=== PATIENT | female | born 1960 | race Asian ===

== ENCOUNTER 2019-01-03 00:21 | Emergency (ER) | payer OTHER ==
[~2019-01-03] VITALS: Ht 152.4 cm; Wt 50.8 kg
[2019-01-03] MEDS ORDERED: LEVOTHYROXINE125 MCG ORAL (00:34)
[2019-01-03 00:36] VITALS: BP 175/89
--- NOTE | 2019-01-03 00:40 | NUR ---
ED Nurse Note: pt was brought in by ra 26 from home c/o right eye pain x 2 days. pt vital signs are stable. pt is still able to see from affected eye but she states her affected eye vision is a bit blurry. pt is able to see normally from other eye. pt states her eye is a bit irritated. affected eye appears pinkish with a little bit of tears. pt cardiac assessment is within normal limits with S1 and S2 noted, pulse and sensation noted on all 4 extremities. pt nuero assessment is within normal limits, pt is alert and oriented times 4, pts pupiles are rounds and reactive to light and accomodating. pt is able to ambulate with steady gait. pt respritory assessment is within normal limits with clear lung sounds on all lung bases no wheezing or adventitious sounds noted.
[2019-01-03] MEDS ORDERED: LET 3ml Soln TOPIC ONE (01:15)
--- NOTE | 2019-01-03 01:20 | NUR ---
ED Nurse Note: Tetracaine LET returned to pyxis, MX not given.
[2019-01-03] MEDS ORDERED: Tetracaine 0.5% Opth 4ml Soln RIGHT EYE ONE (01:30)
[2019-01-03] MEDS ORDERED: Ketorolac 30mg Inj IV ONE (01:45)
[2019-01-03 01:47] LABS: APPEARANCE,URINE CLEAR; BASOPHILS % (AUTO) 0.9 % (0.0-2.0); BILIRUBIN, URINE NEGATIVE (NEGATIVE); COLOR,URINE PALE YELLOW; EOSINOPHILS % (AUTO) 1.9 % (0.0-3.0); GLUCOSE, URINE (UA) NEGATIVE (NEGATIVE); HEMATOCRIT 34.8 % (37.0-47.0); HEMOGLOBIN 11.6 G/DL (12.0-16.0); KETONES,URINE NEGATIVE (NEGATIVE); LEUKOCYTE ESTERASE ,URINE NEGATIVE (NEGATIVE); LYMPHOCYTES % (AUTO) 30.8 % (20.0-45.0); MEAN CORPUSCULAR VOLUME 92 FL (80-99); MONOCYTES % (AUTO) 5.1 % (1.0-10.0); NEUTROPHILS % (AUTO) 61.2 % (45.0-75.0); NITRITE,URINE NEGATIVE (NEGATIVE); PH,URINE 7 (4.5-8.0); PLATELET COUNT 185 K/UL (150-450); PROTEIN,URINE NEGATIVE (NEGATIVE); RED BLOOD COUNT 3.77 M/UL (4.20-5.40); RED CELL DISTRIBUTION WIDTH 11.7 % (11.6-14.8); UROBILINOGEN,URINE NORMAL MG/DL (0.0-1.0); WHITE BLOOD COUNT 5.5 K/UL (4.8-10.8)
[2019-01-03 01:59] LABS: ANION GAP 5 mmol/L (5-15); BLOOD UREA NITROGEN 8 mg/dL (7-18); CALCIUM 9.5 MG/DL (8.5-10.1); CARBON DIOXIDE 31 MMOL/L (21-32); CHLORIDE 103 MMOL/L (98-107); CREATININE 0.5 MG/DL (0.55-1.30); POTASSIUM 3.8 MMOL/L (3.5-5.1); SODIUM 139 MMOL/L (136-145)
[2019-01-03] MEDS ORDERED: POLYTRIM OP SOL10 ML OPHTHALM (02:26)
[2019-01-03] MEDS ORDERED: NORVASC5 MG ORAL (02:26)
--- NOTE | 2019-01-03 02:26 | Emergency Room Report ---
History of Present Illness General Chief Complaint: Eye Problems Source: Patient Present Illness HPI This is a 58-year-old Amhar[place] female with a history of intermittent high blood pressure. She's not on medication for it. She presents with chief complaint of high blood pressure and right eye pain. Onset for last couple days. Per EMS blood pressure very high. It was systolic over 200 and diastolic 120s. Here blood pressure much better. Her eye pain been ongoing for last 2 days for this of swelling and injection. There is some discharge. She is currently seeing an [employer] community [employer] member for macular degeneration and getting monthly Eylea injection. Pain is 8 out of 10. No nausea no vomiting. Worse with lights. Allergies: Coded Allergies: No Known Allergies (Unverified , 01/03/19) Patient History Past Medical History: see triage record, old chart reviewed Past Surgical History: other Pertinent Family History: none Social History: Denies: smoking Last Menstrual Period: 5 yuears ago Now: No Immunizations: other Reviewed Nursing Documentation: PMH: Agreed; PSxH: Agreed Nursing Documentation-PMH Hx Hypertension: Yes Review of Systems Eye: Reports: eye pain; Denies: blurred vision ENT: Denies: ear pain, nose congestion, throat swelling Respiratory: Denies: cough, shortness of breath Cardiovascular: Denies: chest pain, palpitations Gastrointestinal: Denies: abdominal pain, diarrhea, nausea, vomiting Musculoskeletal: Denies: back pain, joint pain Skin: Denies: rash Neurological: Denies: headache, numbness Endocrine: Denies: increased thirst, increased urine Hematologic/Lymphatic: Denies: easy bruising All Other Systems: negative except mentioned in HPI Physical Exam Vital Signs Date Time Temp Pulse Resp B/P (MAP) Pulse Ox O2 Delivery O2 Flow Rate FiO2 01/03/19 00:31 98.1 90 18 175/89 99 Room Air vitals with high blood pressure Sp02 EP Interpretation: reviewed, normal General Appearance: well appearing, no apparent distress, alert Head: normocephalic, atraumatic Eyes: right eye other - Right eye: She has mild puffiness to both lids. She has injection of the conjunctiva and sclera. There is small amount of yellowish discharge. Does have photophobia.; bilateral eye PERRL, bilateral eye EOMI ENT: hearing grossly normal, normal pharynx Neck: full range of motion, supple, no meningismus Respiratory: chest non-tender, lungs clear, normal breath sounds Cardiovascular #1: regular rate, rhythm, no murmur Gastrointestinal: normal bowel sounds, non tender, no mass, no organomegaly, no bruit, non-distended Musculoskeletal: back normal, gait/station normal, normal range of motion Neurologic: alert, oriented x3 Psychiatric: mood/affect normal Skin: warm/dry Medical Decision Making Diagnostic Impression: Primary Impression: Acute right eye pain Additional Impressions: Hypertension Qualified Codes: I10 - Essential (primary) hypertension Headache Qualified Codes: G44.209 - Tension-type headache, unspecified, not intractable ER Course Patient with acute right eye pain and headache. I see no evidence of herpetic lesion. I see no evidence of acute angle glaucoma. No evidence of intracranial injury, bleed or neoplastic process. She has similar symptom in the past. Intraocular pressure not extremely elevated and equal bilaterally. Blood pressure improved greatly without intervention. Pain resolved after tetracaine eyedrop. We will discharge home with ophthalmology follow-up. Last Vital Signs Date Time Temp Pulse Resp B/P (MAP) Pulse Ox O2 Delivery O2 Flow Rate FiO2 01/03/19 00:36 98.1 69 18 175/89 99 Room Air Status: improved Disposition: HOME, SELF-CARE Condition: Stable Scripts Amlodipine Besylate (Norvasc) 5 Mg Tablet 5 MG ORAL DAILY, #30 TAB Prov: José Bergeron MD 01/03/19 Polymyxin/Trimethoprim (Polytrim Eye Drops) 10 Ml Drops 2 DROP OPHTHALM THREE TIMES A DAY, #1 EA Instill in affected eye for 7 days Prov: José Bergeron MD 01/03/19 Additional Instructions: Follow-up with your eye doctor within a week. Follow-up with your doctor in a week for recheck on your blood pressure. Return if symptom worsen. José Bergeron MD Jan 03, 2019 02:26
[2019-01-03 02:34] VITALS: BP 145/78
[2019-01-03 02:35] VITALS: BP 145/78
--- NOTE | 2019-01-03 02:36 | NUR ---
ER DISCHARGE NOTE: Patient is cleared to be discharged per ERMD, pt is aox4, on room air, with stable vital signs. pt was given dc and prescription instructions, pt was able to verbalize understanding, pt id band and iv site removed without complications. pt is able to ambulate with steady gait. pt took all belongings.
== END 2019-01-03 02:40 | disposition home or self-care (01) ==
LOC: EDBD 00:21 → EMR 01:00
DX: I10 Essential (primary) hypertension (principal); G44.209 Tension-type headache, unspecified, not intractable; H57.11 Ocular pain, right eye
CPT/HCPCS: 36415; 80048; 81001; 85025; 99284